=== PATIENT | male | born 1965 | race Hispanic/Latino ===

== ENCOUNTER 2021-05-12 10:41 | Outpatient (CLI) | payer OTHER | END 2021-05-12 10:42 | disposition home or self-care (01) | LOC: CSHWCC 10:41 | PROVIDERS: ATTEND Nurse Practitioner Family | DX: T81.89XD Other complications of procedures, not elsewhere classified, subsequent encounter (principal); S81.802D Unspecified open wound, left lower leg, subsequent encounter; S91.302D Unspecified open wound, left foot, subsequent encounter; I70.203 Unspecified atherosclerosis of native arteries of extremities, bilateral legs; I48.91 Unspecified atrial fibrillation; M32.10 Systemic lupus erythematosus, organ or system involvement unspecified; M86.9 Osteomyelitis, unspecified; Z92.25 Personal history of immunosuppression therapy ==

== ENCOUNTER 2021-05-14 08:53 | Outpatient (CLI) | payer OTHER | END 2021-05-14 08:54 | disposition home or self-care (01) | LOC: CSHWCC 08:53 | PROVIDERS: ATTEND Nurse Practitioner Family | DX: T81.89XD Other complications of procedures, not elsewhere classified, subsequent encounter (principal); S81.802D Unspecified open wound, left lower leg, subsequent encounter; S91.302D Unspecified open wound, left foot, subsequent encounter; I48.91 Unspecified atrial fibrillation; I70.203 Unspecified atherosclerosis of native arteries of extremities, bilateral legs; M32.10 Systemic lupus erythematosus, organ or system involvement unspecified; M86.9 Osteomyelitis, unspecified; Z92.25 Personal history of immunosuppression therapy ==

== ENCOUNTER 2021-05-17 12:35 | Outpatient (CLI) | payer OTHER | END 2021-05-17 12:36 | disposition home or self-care (01) | LOC: CSHWCC 12:35 | PROVIDERS: ATTEND Nurse Practitioner Family | DX: T81.89XD Other complications of procedures, not elsewhere classified, subsequent encounter (principal); S81.802D Unspecified open wound, left lower leg, subsequent encounter; S91.309D Unspecified open wound, unspecified foot, subsequent encounter; I48.91 Unspecified atrial fibrillation; I70.203 Unspecified atherosclerosis of native arteries of extremities, bilateral legs; M32.10 Systemic lupus erythematosus, organ or system involvement unspecified; M86.9 Osteomyelitis, unspecified; Z92.25 Personal history of immunosuppression therapy ==

== ENCOUNTER 2021-05-21 09:04 | Outpatient (CLI) | payer OTHER | END 2021-05-21 09:05 | disposition home or self-care (01) | LOC: CSHWCC 09:04 | PROVIDERS: ATTEND Nurse Practitioner Family | DX: T81.89XD Other complications of procedures, not elsewhere classified, subsequent encounter (principal); S81.802D Unspecified open wound, left lower leg, subsequent encounter; S91.309D Unspecified open wound, unspecified foot, subsequent encounter; I48.91 Unspecified atrial fibrillation; I70.203 Unspecified atherosclerosis of native arteries of extremities, bilateral legs; M32.10 Systemic lupus erythematosus, organ or system involvement unspecified; M86.9 Osteomyelitis, unspecified; Z92.25 Personal history of immunosuppression therapy | CPT/HCPCS: 97605; 99213; G0463 ==

== ENCOUNTER 2021-05-25 08:44 | Outpatient (CLI) | payer OTHER | END 2021-05-25 08:45 | disposition home or self-care (01) | LOC: CSHWCC 08:44 | PROVIDERS: ATTEND Nurse Practitioner Family | DX: T81.89XD Other complications of procedures, not elsewhere classified, subsequent encounter (principal); S81.802D Unspecified open wound, left lower leg, subsequent encounter; S91.309D Unspecified open wound, unspecified foot, subsequent encounter; I48.91 Unspecified atrial fibrillation; I70.203 Unspecified atherosclerosis of native arteries of extremities, bilateral legs; M32.10 Systemic lupus erythematosus, organ or system involvement unspecified; M86.9 Osteomyelitis, unspecified; Z92.25 Personal history of immunosuppression therapy | CPT/HCPCS: 97605; 99213; G0463 ==

== ENCOUNTER 2021-05-28 10:23 | Outpatient (CLI) | payer OTHER | END 2021-05-28 10:24 | disposition home or self-care (01) | LOC: CSHWCC 10:23 | PROVIDERS: ATTEND Nurse Practitioner Family | DX: T81.89XD Other complications of procedures, not elsewhere classified, subsequent encounter (principal); S81.802D Unspecified open wound, left lower leg, subsequent encounter; S91.309D Unspecified open wound, unspecified foot, subsequent encounter; I70.203 Unspecified atherosclerosis of native arteries of extremities, bilateral legs; M86.9 Osteomyelitis, unspecified; I48.91 Unspecified atrial fibrillation; M32.10 Systemic lupus erythematosus, organ or system involvement unspecified; Z92.25 Personal history of immunosuppression therapy ==

== ENCOUNTER 2021-06-01 11:15 | Outpatient (CLI) | payer OTHER | END 2021-06-01 11:16 | disposition home or self-care (01) | LOC: CSHWCC 11:15 | PROVIDERS: ATTEND Nurse Practitioner Family | DX: T81.89XD Other complications of procedures, not elsewhere classified, subsequent encounter (principal); Z89.412 Acquired absence of left great toe ==

== ENCOUNTER 2021-06-04 09:54 | Outpatient (CLI) | payer OTHER | END 2021-06-04 09:55 | disposition home or self-care (01) | LOC: CSHWCC 09:54 | PROVIDERS: ATTEND Nurse Practitioner Family | DX: T81.89XD Other complications of procedures, not elsewhere classified, subsequent encounter (principal) ==

== ENCOUNTER 2021-06-14 09:49 | Outpatient (CLI) | payer OTHER | END 2021-06-14 09:50 | disposition home or self-care (01) | LOC: CSHWCC 09:49 | PROVIDERS: ATTEND Nurse Practitioner Family | DX: T81.89XD Other complications of procedures, not elsewhere classified, subsequent encounter (principal); S91.302D Unspecified open wound, left foot, subsequent encounter | CPT/HCPCS: 99213; G0463 ==

== ENCOUNTER 2021-06-18 08:07 | Outpatient (CLI) | payer OTHER | END 2021-06-18 08:08 | disposition home or self-care (01) | LOC: CSHWCC 08:07 | PROVIDERS: ATTEND Nurse Practitioner Family | DX: T81.89XD Other complications of procedures, not elsewhere classified, subsequent encounter (principal); T87.89 Other complications of amputation stump ==

== ENCOUNTER 2021-06-25 08:44 | Outpatient (CLI) | payer OTHER | END 2021-06-25 08:45 | disposition home or self-care (01) | LOC: CSHWCC 08:44 | PROVIDERS: ATTEND Nurse Practitioner Family | DX: T87.89 Other complications of amputation stump (principal); Z89.412 Acquired absence of left great toe | CPT/HCPCS: 99213; G0463 ==

== ENCOUNTER 2021-07-02 08:19 | Outpatient (CLI) | payer OTHER | END 2021-07-02 08:20 | disposition home or self-care (01) | LOC: CSHWCC 08:19 | PROVIDERS: ATTEND Nurse Practitioner Family | DX: T81.89XD Other complications of procedures, not elsewhere classified, subsequent encounter (principal); T87.89 Other complications of amputation stump | CPT/HCPCS: 99213; G0463 ==

== ENCOUNTER 2021-10-25 20:07 | Emergency (ER) | payer OTHER | END 2021-10-25 22:39 | disposition home or self-care (01) | LOC: CSHERS 20:07 | DX: S51.811A Laceration without foreign body of right forearm, initial encounter (principal); W45.8XXA Other foreign body or object entering through skin, initial encounter | CPT/HCPCS: 99282 ==